=== PATIENT | female | born 1965 | race Caucasian/White ===

== ENCOUNTER 2017-06-06 14:58 | Inpatient (IN) | payer OTHER ==
[~2017-06-06] VITALS: Ht 167.6 cm; Wt 81.7 kg
[~2017-06-06 14:58] MED LIST: AZIT250 PO; Crutch1 EACH MISC; DULO30 PO; Estradiol0.5 MG; IBUP800 PO; ISODICACE; KETO10 PO; LORA10ER; RXCODGUASY PO; SIMV10 PO
[2017-06-26] MEDS ORDERED: LORA.5 PO (14:07)
[2017-06-26] MEDS ORDERED: PSEU120ER PO (14:08)
[2017-06-26] MEDS ORDERED: Fluorouracil10 M1 TOP (14:09)
[2017-07-15 05:38] LABS: BASOPHILS ABSOLUTE AUTO 0.05 K/mm3 (0.00-0.23); BASOPHILS PERCENT AUTO 1 % (0-2); EOSINOPHILS ABSOLUTE AUTO 0.19 K/mm3 (0.00-0.68); EOSINOPHILS PERCENT AUTO 2 % (0-6); Hematocrit 36.6 % (33.0-51.0); Hemoglobin 11.9 g/dL (11.5-16.0); IMMATURE GRAN ABSOLUTE AUTO 0.04 K/mm3 (0.00-0.10); IMMATURE GRAN PERCENT AUTO 0 % (0-1); LYMPHOCYTES ABSOLUTE AUTO 2.96 K/mm3 (0.84-5.20); LYMPHOCYTES PERCENT AUTO 31 % (21-46); MONOCYTES ABSOLUTE AUTO 0.49 K/mm3 (0.16-1.47); MONOCYTES PERCENT AUTO 5 % (4-13); Mean Corpuscular HGB 29.4 pg (26.0-34.0); Mean Corpuscular HGB Conc 32.5 g/dL (31.5-36.5); Mean Corpuscular Volume 90 fL (80-100); Mean Platelet Volume 9.9 fL (9.1-12.4); NEUTROPHILS ABSOLUTE AUTO 5.91 K/mm3 (1.96-9.15); NEUTROPHILS PERCENT AUTO 61 % (41-73); Platelet Count 207 K/mm3 (150-400); RDW Coefficient Variation 13.3 % (11.7-14.2); RDW Standard Deviation 44.1 fL (35.1-46.3); Red Blood Cell Count 4.05 M/mm3 (3.80-5.20); White Blood Cell Count 9.64 K/mm3 (4.00-11.30)
[2017-07-15 05:54] LABS: Anion Gap 7 mmol/L (6-16); Blood Urea Nitrogen 11 mg/dL (8-24); Bun/Creatinine Ratio 14.6 (12.0-20.0); CO2, Blood 30 mmol/L (21-32); Calcium, Blood 8.9 mg/dL (8.5-10.1); Chloride, Blood 102 mmol/L (98-108); Creatinine, Blood 0.76 mg/dL (0.40-1.00); Glomerular Filtration Rate >60 (60-); Glucose, Blood 118 mg/dL (70-99); Potassium, Blood 3.8 mmol/L (3.5-5.5); Sodium, Blood 139 mmol/L (136-145)
[2017-07-16] MEDS ORDERED: TYLECOD3 PO (12:09)
[2017-07-16] MEDS ORDERED: TRAM50 PO (14:24)
== END 2017-07-16 15:01 | disposition home or self-care (01) | DRG 470 ==
LOC: PRE IP 07-14 08:06 → SURS 07-14 08:06 → PRE IP 07-14 10:30 → SURS 07-14 12:54
PROVIDERS: Orthopaedic Surgery
PROC: 0SRD0J9 Replacement of Left Knee Joint with Synthetic Substitute, Cemented, Open Approach (ICD-10-PCS; principal; 2017-07-14 10:30)
DX: M17.12 Unilateral primary osteoarthritis, left knee (principal); F32.9 Major depressive disorder, single episode, unspecified; F41.9 Anxiety disorder, unspecified; Z88.6 Allergy status to analgesic agent; Z88.5 Allergy status to narcotic agent; Z88.8 Allergy status to other drugs, medicaments and biological substances; Z79.899 Other long term (current) drug therapy
CPT/HCPCS: 73560-LT; 80048; 83735; 85025; 88300; 97110; 97116; 97161; 97530; C1713; C1776; G8978; G8979; J0171; J0690; J0735; J1885; J2250; J2405; J2765; J2795; J3010; J7120; Q0163

== ENCOUNTER 2020-04-27 09:25 | Day surgery (SDC) | payer OTHER ==
[~2020-04-27] VITALS: Ht 167.6 cm; Wt 81.8 kg
[~2020-04-27 09:25] MED LIST changes: +CLON.5 PO; +Fluorouracil10 M1 TOP; +LORA.5 PO; +Mobic15 MG PO; +OMEP20ER PO; +PSEU120ER PO; +TRAM50 PO; +TYLECOD3 PO; +VENL150ER PO; +ZOCOR20 MG PO
--- NOTE | 2020-04-27 10:42 | NUR ---
04/27/20 1042 YECENIA LYONS AT BEGINNING OF CASE - 100MG PROPOFOL IN - PT SATS FROPPED TO 85%. JAW THRUST, CHIN LIFT - NO CHANGE. INCREASE NC O2 TO 5L. NO CHANGE. APPLIED NON-REBREATHER FOR MAINTAIN O2 SATS. PT THEN AT 99% ON 5L VIA NON REBREATHER.
== END 2020-04-27 11:29 | disposition home or self-care (01) ==
LOC: ORSCSDS 09:25
PROVIDERS: Internal Medicine Gastroenterology
PROC: 0DBL8ZX Excision of Transverse Colon, Via Natural or Artificial Opening Endoscopic, Diagnostic (ICD-10-PCS; principal; 2020-04-27 10:45)
DX: Z12.11 Encounter for screening for malignant neoplasm of colon (principal); D12.3 Benign neoplasm of transverse colon; F41.8 Other specified anxiety disorders
CPT/HCPCS: 88305; J2704; J7120